=== PATIENT | male | born 1995 | race Caucasian/White ===

== ENCOUNTER 2025-01-02 15:24 | Inpatient (IN) | payer OTHER, SELFPAY ==
[2025-01-01] VITALS (8 sets, daily range): BP systolic 103–130; BP diastolic 68–79; BMI 25.7; BMI 24.9
[2025-01-01 12:49] LABS: % Basophils 0.4 % (0-2); % Eosinophils 0.3 % (0-6); % Immature Granulocytes 0.1 % (0-0.5); % Lymphocytes 21.7 % (20.5-51.1); % Monocytes 8.8 % (1.7-9.3); % Neutrophils 68.7 % (42.2-75.2); Absolute Lymphocytes 1.6 10^3/uL (1.2-3.4); Absolute Monocytes 0.7 10^3/uL (0.1-0.6); Absolute Neutrophils 5.2 10^3/uL (1.4-6.5); Hemoglobin 16.1 g/dL (13.0-18.0); Mean Corp Hgb Conc. 35.8 g/dL (33.0-37.0); Mean Corpuscular Hgb 31.1 pg (27.0-31.0); Mean Corpuscular Volume 86.9 fL (80.0-94.0); Mean Platelet Volume 10.6 fL (7.4-10.4); Nucleated Red Blood Cells % 0 % (-); Platelet Count 244 10^3/uL (130-400); Red Blood Cell Count 5.18 10^6/uL (4.70-6.10); Red Cell Dist. Width 12.2 % (11.5-14.5); White Blood Cell Count 7.5 10^3/uL (4.8-10.8)
[2025-01-01 13:15] LABS: ALT (SGPT) 36 U/L (0-50); AST (SGOT) 33 U/L (17-59); Albumin 4.9 g/dl (3.5-5.0); Alkaline Phosphatase 54 U/L (38-126); Blood Urea Nitrogen 13 mg/dl (9-20); Calcium 9.7 mg/dl (8.4-10.2); Carbon Dioxide 24 mmol/L (22-30); Chloride 108 mmol/L (98-107); Estimated Creatinine Clearance > 125 ml/min; Glucose 94 mg/dl (70-99); Potassium 4.3 mmol/L (3.5-5.1); Sodium 142 mmol/L (135-145); Total Bilirubin 1.3 mg/dl (0.2-1.3); Total Protein 7.9 g/dl (6.3-8.2); eGFR > 60.00
--- NOTE | 2025-01-01 13:34 | ED.GENMED ---
History of Present Illness
General
Chief Complaint: Dizziness
Time Seen by Provider: 01/01/25 11:22
History of Present Illness
History of Present Illness:
29-year-old male presents to the emergency department for evaluation of periods of confusion, difficulty with word finding, intermittent headaches, and blurry vision for the past 9 days. He was seen 1 week ago at [facility] and had
unremarkable lab workup, negative CT scan of the head, and negative tickborne illness panel. He has continued to have symptoms since that time. Having difficulty working secondary to severe symptoms. Denies any vertiginous symptoms. He was given
meclizine however this did not provide any benefit. Denies chest pain or dyspnea. He does note having a URI about 1 week prior to symptoms started but took antibiotics for this and felt better
Review of Systems
Review of Systems
Allergies reviewed?: Yes
All Other Systems: ROS reviewed and negative except as documented in HPI and ROS
Phy Exam
Physical Exam
Physical Exam:
GEN: Well appearing, NAD, WDWN
HEENT: Oral mucosa moist, no scleral icterus, no nasal congestion
Cardiac: Regular rate and rhythm, no murmurs
Lung: No respiratory distress, no tachypnea
MSK: No gross deformity or injuries
Skin: Good color, no pallor or jaundice, no rashes
Neuro: AO x3; CN II-XII grossly intact. BUE strength 5/5 in all felder, sensation intact and symmetric. BLE strength 5/5 in all felder, sensation intact and symmetric
Psych: Calm, cooperative
Course
Orders/Labs/Results
Orders:
Orders
01/01/25 12:13
Electrocardiogram (*1) Urgent
Reason for Study: Vertigo / Dizzy
EKG- Treatment ONCE
01/01/25 12:38
Complete Blood Count/With Diff Urgent
Comprehensive Metabolic Panel Urgent
TSH Reflex To Free T4 Urgent
01/01/25 15:58
MR Brain W/o & With Contrast Routine
Comment:
Reason For Exam: subtle right sided weakness/numbness
Recent pill cam endoscopy?: No
Abnormal Lab Results
01/01/25
12:38
MCH 31.1 H pg
(27.0-31.0)
MPV 10.6 H fL
(7.4-10.4)
Absolute Monos (auto) 0.7 H 10^3/uL
(0.1-0.6)
Chloride 108 H mmol/L
(98-107)
01/01/25 12:38
01/01/25 12:38
Vital Signs
Initial and Last Documented VS:
Initial Vital Signs
Temp Pulse Resp BP Pulse Ox
97.9 F 87 16 130/79 99
01/01/25 10:21 01/01/25 10:21 01/01/25 10:21 01/01/25 10:21 01/01/25 10:21
Last Documented Vital Signs
Temp Pulse Resp BP Pulse Ox
97.9 F 79 27 104/79 100
01/01/25 10:21 01/01/25 16:17 01/01/25 16:17 01/01/25 16:17 01/01/25 16:20
MDM/Problems Addressed
MDM/Problems Addressed:
Neurology was consulted to see the patient, on their evaluation they are concern for subtle weakness and vibratory sensation loss as well as a subtle right facial droop, although the constellation of symptoms is quite vague and broad neurology
recommends admission for MRI to evaluate for occult brain mass, demyelinating syndrome.
*Critical Care Note
Total Time (30-74mins, 75-104mins- exclusive of procedures): Not Applicable
ED Attending Note
-
Portions of this chart may have been created with voice recognition software.� Occasional wrong word or��sound alike� substitutions may have occurred due to the inherent limitations of voice recognition software.
Discharge Plan
Departure
Patient Disposition: Admit
Date of Disposition: 01/01/25
Time of Disposition: 16:24
Admit to: Med/Surg
Presentation/result/management discussed w/ accepting MD/DO: Hospitalist
Discharge Problem:
Dizziness
Prescriptions:
No Action
No Current Medications
0
Referrals:
NONE,* [Family Provider, Internal Medicine]
Interventions
Interventions:
*Risk Screen - Suicide Last Done: 01/01/25 10:21
*General Assessment Last Done: 01/01/25 10:21
*Neglect/Abuse Screening Last Done: 01/01/25 11:21
*ED- Fall Risk Assessment Last Done: 01/01/25 11:21
*ED COVID-19 Vaccine History Last Done: 01/01/25 11:21
ED- Neurological Assessment Last Done: 01/01/25 11:36
ED- Cardiac Assessment Last Done: 01/01/25 11:25
ED Swallowing Screen Last Done: 01/01/25 12:42
Discharge Date and Time
Print Language: VINCENTIAN
[2025-01-01 13:35] LABS: TSH Reflex To Free T4 1.19 uIU/ml (0.47-4.68)
--- NOTE | 2025-01-01 17:00 | HPS.HSE ---
Addendum entered and electronically signed by OLAYINKA Centeno 01/01/25 19:05:
Addendum:
Patient portal showed negative Lyme from [facility]
Original Note:
Family Physician
-
Family Physician: * NONE
Chief Complaint
-
dizziness
History of Present Illness
Patient is a 29 year-old male with no significant past medical history who presented to [facility] ED for evaluation of dizziness, periods of confusion, difficulty word finding intermittent, headaches and blurry vision for past 9 days. Patient reports
being seen at [facility] and had unremarkable workup, negative CT, and negatvie tick borne illness panel. Patient reports symptoms have been intermittent ever since. he believes symptoms are better in the morning and get worse as day goes
on. Patient denies any numbness, tingling, chest pain, palpitations or infectious symtpoms.
Medical History
Past Medical History
Past Medical History: Reports None
Past Surgical History: Reports None
Social History
Tobacco: Vaping (utilizes vape and pouches for nicotine )
Alcohol: Occasional
Drug: Marijuana (occasional marijuana use )
Personal:
Living: With Family
Employment: Employed
Family History
Family History: Other (Maternal grandfather: pituitary tumor; Father: CAD )
Allergies / Home Medications
Allergies reflects when Allergies were last updated in [facility].
Home Medications with original date entered in [facility]
Allergy/Medication List:
Allergies
Allergy/AdvReac Type Severity Reaction Status Date / Time
cephalexin (From Keflex) Allergy Unknown Verified 01/01/25 10:21
Cephalosporins Allergy Unknown Verified 01/01/25 10:21
clarithromycin (From Biaxin) Allergy Unknown Verified 01/01/25 10:21
Penicillins Allergy Unknown Verified 01/01/25 10:21
Home Medications
No Meds [No Current Medications] 01/01/25
Review of Systems
-
History Source: Patient
Constitutional: Reports No Symptoms
EENT: Reports No Symptoms
Respiratory: Reports No Symptoms
Cardiac: Reports No Symptoms
Abdomen/GI: Reports No Symptoms
: Reports No Symptoms
Musculoskeletal: Reports No Symptoms
Skin: Reports No Symptoms
Neurological: Reports Dizzy, Headache and Other (blurry vision, headaches)
Endocrine: Reports No Symptoms
Hematologic/Lymphatic: Reports No Symptoms
Psych: Reports No Symptoms
Physical Exam
Vital Signs
Vital Signs
Temp Pulse Resp BP Pulse Ox
97.9 F 79 27 104/79 100
01/01/25 10:21 01/01/25 16:17 01/01/25 16:17 01/01/25 16:17 01/01/25 16:20
Physical Exam
General: Well Developed, Well Nourished, No Apparent Distress, Comfortable and Conversant
HEENT: NormoCephalic, Moist mucous membranes, Atraumatic, Nose Appears Normal and Ears Appear Normal
Respiratory: Clear and Non Labored Respirations
Cardiac: S1/S2 and Regular Rhythm
Breast: Deferred by me
GI: Soft, Non Tender, Non Distended and Normal Bowel Sounds; No Organomegaly
Rectal: Deferred by Provider
Genito-urinary: Deferred by me
Musculoskeletal: No Clubbing, No Cyanosis and No Edema
Skin: Warm, Rash and IV/Catheter Site
Neuro: Awake, Alert, AO x 3, No Motor Deficits, Nonfocal/grossly intact, Cranial Nerves Intact (II - XII) and No Sensory Deficits; No Slurred Speech, Facial Droop or Tremors
Psych: Calm and Intact Judgment/Insight
Laboratory Results
-
01/01/25 12:38
01/01/25 12:38
Laboratory Results
Total Bilirubin 1.3 mg/dl (0.2-1.3) 01/01/25 12:38
AST 33 U/L (17-59) 01/01/25 12:38
ALT 36 U/L (0-50) 01/01/25 12:38
Alkaline Phosphatase 54 U/L (38-126) 01/01/25 12:38
Data Reviewed
-
MRI: Report Reviewed by me (brain: Negative MR evaluation of the brain.)
Medical Tests (Nuc Med, Echo, EKG etc): Report Reviewed by me (EKG: NORMAL SINUS RHYTHM WITH SINUS ARRHYTHMIA NONSPECIFIC ST ABNORMALITY)
Lab Data: Labs Reviewed by me
Impression/Plan
-
IMPRESSION/PLAN:
#neurological symptoms with confusion, brain fog, dizziness
EKG: NORMAL SINUS RHYTHM WITH SINUS ARRHYTHMIA
NONSPECIFIC ST ABNORMALITY
Brain MRI: Negative MR evaluation of the brain
- Admit to med/surg for observation
- Consult Neurology
- EEG
- LP
Code status: full code
DVT prophylaxis: Lovenox sq
--- NOTE | 2025-01-01 18:36 | W.PN.UPDATE ---
Update Note
Progress Note Update
Patient was independently examined and I agree with H&P written on the same day. In addition: 29yo M with various neurological complains as confusion, difficulty finding words, intermittent blurry vision with eye pressure tarted on and
recent workup in [facility], which reportedly was negative.
-Neuro consult, ESR, CRP, EEG, LP
We have spent at least 76min admitting the patient
--- NOTE | 2025-01-01 18:38 | CON.NEURO ---
Addendum entered and electronically signed by Eyad Lynch MD 01/01/25 19:16:
we also discussed option of discharge home, watching progression; either it gets better, gets worse and reveals what it is; or stays the same in whch case it typically responds to migraine meds, antidepressants or antiseizure drugs;
as he is acutely unable to work, he would like further workup
Original Note:
Neuro Assessment/Plan
Assessment
29 year old healthy man with nonspecific symptoms, severe enough that it is impairing his ability to work. exam with subtle right sided weakness/numbness;
Emergent brain MRI w/o and w/ contrast I reviewed imaging, normal
if his right sided deficits on exam are indeed related to the presenting symptoms, next steps in workup would be EEG and LP looking for autoimmune/infectious etiology
and additional medical workup
Later I performed SPG block bilaterally - afterwards patient report headache relief and his right sided weakness on exam was resolved but the other symptoms brain fog, dizziness persists
Plan
EEG, LP for viral/autoimmune
Consultation
Order
Date of Consultation: 01/01/25
Requesting Provider: Mau Nettles
Reason for Consult: dizziness
Subjective/Objective
Subjective Data
Date of Service: January 01, 2025
From ED notes:
29-year-old male presents to the emergency department for evaluation of periods of confusion, difficulty with word finding, intermittent headaches, and blurry vision for the past 9 days. He was seen 1 week ago at [facility] and had
unremarkable lab workup, negative CT scan of the head, and negative tickborne illness panel. He has continued to have symptoms since that time. Having difficulty working secondary to severe symptoms. Denies any vertiginous symptoms. He was given
meclizine however this did not provide any benefit. Denies chest pain or dyspnea. He does note having a URI about 1 week prior to symptoms started but took antibiotics for this and felt better
right handed.
complaining of lightheadedness, mild headache forehead/right eye, mild blurry vision, confusion, word finding difficulties, brain fog, dyspnea on exertion. symptoms seem to worsen throughout the day, and relatively constant since beginning ~10 days
ago
denies vertigo, vision loss, double vision, facial droop, involuntary movements, seizures, hallucinations, delusions, weakness/numbness
Objective Data
Vital Signs
Temp Pulse Resp BP Pulse Ox
36.6 C 81 11 104/79 100
01/01/25 10:21 01/01/25 17:00 01/01/25 17:00 01/01/25 16:17 01/01/25 16:20
Lab Results
01/01/25 12:38
01/01/25 12:38
Sodium 142 mmol/L (135-145) 01/01/25 12:38
Potassium 4.3 mmol/L (3.5-5.1) 01/01/25 12:38
BUN 13 mg/dl (9-20) 01/01/25 12:38
Glucose 94 mg/dl (70-99) 01/01/25 12:38
Calcium 9.7 mg/dl (8.4-10.2) 01/01/25 12:38
Patient Allergies
cephalexin (From Keflex) Allergy (Verified 01/01/25 10:21)
Unknown
Cephalosporins Allergy (Verified 01/01/25 10:21)
Unknown
clarithromycin (From Biaxin) Allergy (Verified 01/01/25 10:21)
Unknown
Penicillins Allergy (Verified 01/01/25 10:21)
Unknown
Physical Exam
-
AAOx3, speech clear, language intact
VFF, EOMI, face symmetric
trace right sided weakness, right pronator drift
trace right sided vibratory loss
pinprick intact
DTR normal/symmetric
Medications
-
Home Medications
�Medication �Instructions �Recorded
No Meds [No Current Medications] 01/01/25
[2025-01-01] MEDS: TYLENOL 650 MG PO (20:53)
[2025-01-01 23:31] LABS: C-Reactive Protein < 5.00 mg/L (0.0-10.00)
[2025-01-01 23:55] LABS: Amphetamines Negative (Negative); Barbiturates Negative (Negative); Benzodiazepines Negative (Negative); Buprenorphine Negative (Negative); Cocaine Negative (Negative); Marijuana Negative (Negative); Methadone Negative (Negative); Methamphetamines Negative (Negative); Opiates Negative (Negative); Phencyclidine Negative (Negative); Tricyclic Antidepressants Negative (Negative)
--- NOTE | 2025-01-02 07:13 | W.PN.HOSP.TC ---
Today's Communication/Plan
-
Discharge today after CT Imaging completed and CT report is in
Assessment / Plan
Assessment / Plan
Physical Exam
General: Well Developed, Well Nourished, No Apparent Distress, Comfortable and Conversant
HEENT: Normocephalic, Moist mucous membranes
Respiratory: Clear to Auscultation Bilaterally
Cardiac: S1/S2 and Regular Rhythm
GI: Soft, Non Tender, Non Distended and Normal Bowel Sounds
Musculoskeletal: No Cyanosis and No Edema
Skin: Warm. Dry.
Neuro: Awake, Alert, AO x 3, No Motor Deficits, Nonfocal/grossly intact, Cranial Nerves Intact (II - XII) and No Sensory Deficits
Psych: Calm and Intact Judgment/Insight
Assessment/Plan
29 year-old male with no significant past medical history who presented to [facility] ED for evaluation of dizziness, periods of confusion, difficulty word finding intermittent, headaches and blurry vision for past 9 days. Patient reports being seen at
[facility] and had unremarkable workup, negative CT, and negatvie tick borne illness panel. Patient reports symptoms have been intermittent ever since. he believes symptoms are better in the morning and get worse as day goes on. Patient
denies any numbness, tingling, chest pain, palpitations or infectious symtpoms.
Patient portal showed negative Lyme from [facility]
29yo M with various neurological complains as confusion, difficulty finding words, intermittent blurry vision with eye pressure tarted on and recent workup in [facility], which reportedly was negative.
#Neurological symptoms with confusion, brain fog, dizziness
#Migraine
- After neurology performed on 01/01/25 sphenopalatine ganglion block his headache resolved, and his right sided weakness on exam was resolved but the other symptoms brain fog, dizziness persisted
- Brain MRI: Negative MR evaluation of the brain
- Consult Neurology
- EEG unremarkable
- LP
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
- CT chest/abd/pel cancer screen to be done today
- Follow-up outpatient pending oligoclonal band, MBC, ADDISON, viral PCR, acid fast, paraneoplastic ab
- Might need IVIG outpatient
- Outpatient Cymbalta 20 mg daily
- Follow-up with neurology office, Zully Emery, in 2 weeks
Code status: full code
DVT prophylaxis: Lovenox sq
More than 30 minutes spent in discharge including
Final examination of the patient
Summarizing hospital stay
Instructions for continuing care to all relevant caregivers
Preparation of discharge records, prescriptions, and referral forms
Total time spent (in minutes): 43
Anticipated Discharge: Today
Subjective/Interval History
-
Date of Service: January 02, 2025
Patient was seen and examined. He reported that his brain fog and lightheadedness remain.
Objective Data
-
Labs:
Laboratory Results
01/02/25
07:03
WBC Pending
Hgb Pending
Hct Pending
Plt Count Pending
Sodium Pending
Potassium Pending
Chloride Pending
Carbon Dioxide Pending
BUN Pending
Creatinine Pending
Glucose Pending
Calcium Pending
Vital Signs:
Vital Signs
Temp Pulse Resp BP Pulse Ox
98.0 F 67 11 120/79 98
01/01/25 23:46 01/01/25 23:46 01/01/25 17:00 01/01/25 23:46 01/01/25 23:46
[2025-01-02 07:30] VITALS: BP 125/64
[2025-01-02 07:47] LABS: Hematocrit 47.9 % (39.0-52.0); Hemoglobin 16.6 g/dL (13.0-18.0); Mean Corp Hgb Conc. 34.7 g/dL (33.0-37.0); Mean Corpuscular Hgb 30.7 pg (27.0-31.0); Mean Corpuscular Volume 88.5 fL (80.0-94.0); Mean Platelet Volume 10.6 fL (7.4-10.4); Platelet Count 246 10^3/uL (130-400); Red Blood Cell Count 5.41 10^6/uL (4.70-6.10); Red Cell Dist. Width 12.4 % (11.5-14.5); White Blood Cell Count 7.6 10^3/uL (4.8-10.8)
[2025-01-02 08:09] LABS: INR 1.02; PT 13.9 Sec (11.4-14.6)
[2025-01-02 08:19] LABS: Erythrocyte Sed Rate 5 mm/hour (0-20)
[2025-01-02 08:41] LABS: Blood Urea Nitrogen 12 mg/dl (9-20); Calcium 9.6 mg/dl (8.4-10.2); Carbon Dioxide 27 mmol/L (22-30); Chloride 106 mmol/L (98-107); Estimated Creatinine Clearance 124 ml/min; Glucose 93 mg/dl (70-99); Potassium 4.5 mmol/L (3.5-5.1); Sodium 141 mmol/L (135-145); eGFR > 60.00
[2025-01-02 10:30] VITALS: BP 108/78; BP_SYST 73
[2025-01-02 11:44] VITALS: BP 112/77
[2025-01-02 12:22] VITALS: BP 129/77
[2025-01-02 12:54] LABS: Spinal Fluid Glucose 55 mg/dl (40-70); Spinal Fluid Protein 77 mg/dl (12-60)
--- NOTE | 2025-01-02 13:06 | CM ---
Initial assessment completed with mother and jake. Patient off unit. Patient lives with his jake and 4 y/o son in a 1 story home plus basement with 2 steps to enter. 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 No DME. No in-home services. No
service and no HC-POA. Family is support system. No PCP. Pharmacy is [facility] in [facility]. Discharge POC: Anticipate home with no needs.
[2025-01-02 13:09] LABS: CSF Clarity Clear; CSF Color Colorless; CSF Tube # 4; Red Cell Count/CSF 4 mm^3; White Cell Count/CSF 1 mm^3 (0-5)
[2025-01-02 13:29] VITALS: BP 115/67
--- NOTE | 2025-01-02 14:03 | W.PN.UPDATE ---
Update Note
Progress Note Update
procedure note
performed yesterday 01/01/25
59816.50 sphenopalatine ganglion block
dx G43.111 intractable migraine without aura
patient placed supine, using 3 cc syringe 20g x 1.25 inch plastic iv catheter, 1 cc bupivacaine 0.5% sprayed each nostril
~1 minute after the procedure patient report headache resolved, on exam focal deficits resolved. lightheadedness and brain fog persisted
--- NOTE | 2025-01-02 14:54 | W.PN.NEURO.1 ---
Today's Communication / Plan
-
MRI brain w/o and w/ contrast neg
EEG normal
CSF protein 77, glc 55, WBC 1, RBC 4
pending oligoclonal band, MBC, ADDISON, viral PCR, acid fast, paraneoplastic ab
with CSF protein 77 albuminocytologic dissociation, strengthens my suspicions for this being the beginnings of autoimmune encephalitis
CT chest/abd/pel cancer screen
discussed that based on tests/symptoms progression he may need IVIG
for his migrainous symptoms, anxiety, rx Cymbalta 20/day
have asked our office to follow up with him in 2 weeks with [employer]
Neuro Assessment/Plan
Assessment
29 year old healthy man with nonspecific symptoms, severe enough that it is impairing his ability to work. exam with subtle right sided weakness/numbness;
Emergent brain MRI w/o and w/ contrast I reviewed imaging, normal
if his right sided deficits on exam are indeed related to the presenting symptoms, next steps in workup would be EEG and LP looking for autoimmune/infectious etiology
and additional medical workup
Later I performed SPG block bilaterally - afterwards patient report headache relief and his right sided weakness on exam was resolved but the other symptoms brain fog, dizziness persists
Plan
EEG, LP for viral/autoimmune
Subjective/Objective
Subjective Data
Date of Service: January 02, 2025
got LP, getting EEG now. laying in bed very anxious (baseline anxiety)
headache and right sided deficits resolved
lightheadedness persists. brain fog he's not sure until he gets home
Objective Data
Vital Signs
Temp Pulse Resp BP Pulse Ox
36.7 C 80 16 115/67 99
01/02/25 12:22 01/02/25 13:29 01/02/25 13:29 01/02/25 13:29 01/02/25 13:29
Lab Results
01/02/25 07:03
01/02/25 07:03
PT 13.9 Sec (11.4-14.6) 01/02/25 07:44
INR 1.02 01/02/25 07:44
Sodium 141 mmol/L (135-145) 01/02/25 07:03
Potassium 4.5 mmol/L (3.5-5.1) 01/02/25 07:03
BUN 12 mg/dl (9-20) 01/02/25 07:03
Glucose 93 mg/dl (70-99) 01/02/25 07:03
Calcium 9.6 mg/dl (8.4-10.2) 01/02/25 07:03
Ur Buprenorphine Negative (Negative) 01/01/25 23:14
Patient Allergies
cephalexin (From Keflex) Allergy (Verified 01/01/25 10:21)
Unknown
Cephalosporins Allergy (Verified 01/01/25 10:21)
Unknown
clarithromycin (From Biaxin) Allergy (Verified 01/01/25 10:21)
Unknown
Penicillins Allergy (Verified 01/01/25 10:21)
Unknown
--- NOTE | 2025-01-02 15:03 | CM ---
Per Therapy: Patient will need air mattress when at SNF.
--- NOTE | 2025-01-02 15:08 | EEG.RPT ---
Electroencephalogram Report
Recording
Date of EE01/02/25
Length of EEG recordin mins
Done with Video Recording: Yes
Patient Status: Inpatient
Recording Conditions: Awake and Drowsy
Hyperventilation Performed: No
Photic Stimulation Performed: Yes
Report
Clinical Background:�29 year old man suspecting encephalitis
Introduction: A routine bedside EEG was done using [employer] 10-20 electrode placement protocol.
Background: In the most alert state, the PDR is 9-10 Hz in frequency with normal amplitude. There is spontaneous variability and reactivity.�
Sleep: No sleep is seen.�
Focal/epileptiform: There were no focal or epileptiform discharges. No clinical or electrographic seizures occurred during this recording.
Photic stimulation: resulted in normal driving response. There was no photo myogenic or photoparoxysmal response.�
Impression: Normal EEG
[2025-01-02] MEDS: OMNIPAQUE 50 ML PO (15:37)
[2025-01-02] MEDS: CYMBALTA DELAYED RELEASE 20 MG PO (15:37)
[2025-01-02] MEDS: LOVENOX 40 MG SC (20:22)
[2025-01-02] MEDS: TYLENOL 650 MG PO (21:38)
[2025-01-02 23:23] VITALS: BP 112/79
[2025-01-03 07:42] VITALS: BP 123/61
[2025-01-03] MEDS: CYMBALTA DELAYED RELEASE 20 MG PO (08:18)
[2025-01-03 09:19] LABS: % Basophils 0.3 % (0-2); % Eosinophils 0.6 % (0-6); % Immature Granulocytes 0.3 % (0-0.5); % Lymphocytes 21.6 % (20.5-51.1); % Monocytes 9.2 % (1.7-9.3); Absolute Lymphocytes 1.5 10^3/uL (1.2-3.4); Absolute Monocytes 0.6 10^3/uL (0.1-0.6); Absolute Neutrophils 4.7 10^3/uL (1.4-6.5); Hematocrit 47.6 % (39.0-52.0); Hemoglobin 16.6 g/dL (13.0-18.0); Mean Corp Hgb Conc. 34.9 g/dL (33.0-37.0); Mean Corpuscular Hgb 30.4 pg (27.0-31.0); Mean Corpuscular Volume 87.2 fL (80.0-94.0); Mean Platelet Volume 10.5 fL (7.4-10.4); Nucleated Red Blood Cells % 0 % (-); Platelet Count 273 10^3/uL (130-400); Red Blood Cell Count 5.46 10^6/uL (4.70-6.10); Red Cell Dist. Width 12.3 % (11.5-14.5); White Blood Cell Count 6.9 10^3/uL (4.8-10.8)
[2025-01-03 10:16] LABS: ALT (SGPT) 31 U/L (0-50); AST (SGOT) 24 U/L (17-59); Albumin 4.7 g/dl (3.5-5.0); Alkaline Phosphatase 54 U/L (38-126); Blood Urea Nitrogen 12 mg/dl (9-20); Calcium 9.9 mg/dl (8.4-10.2); Carbon Dioxide 29 mmol/L (22-30); Chloride 105 mmol/L (98-107); Estimated Creatinine Clearance > 125 ml/min; Glucose 94 mg/dl (70-99); Lipase 94 U/L (23-300); Magnesium 2.1 mg/dl (1.6-2.3); Potassium 4.8 mmol/L (3.5-5.1); Sodium 142 mmol/L (135-145); Total Bilirubin 0.9 mg/dl (0.2-1.3); Total Protein 7.8 g/dl (6.3-8.2); eGFR > 60.00
--- NOTE | 2025-01-03 11:47 | CM ---
Reviewed the chart notes. Patient ambulating in room ad markus. CM continues to be available to patient/family and is monitoring medical plan for needs at discharge.
Plan: Discharge to home when medically stable. No needs anticipated.
--- NOTE | 2025-01-03 13:27 | W.PN.HOSP.TC ---
Today's Communication/Plan
-
Discharge today
Assessment / Plan
Assessment / Plan
Physical Exam
General: Well Developed, Well Nourished, No Apparent Distress, Comfortable and Conversant
HEENT: Normocephalic, Moist mucous membranes
Respiratory: Clear to Auscultation Bilaterally
Cardiac: S1/S2 and Regular Rhythm
GI: Soft, Non Tender, Non Distended and Normal Bowel Sounds
Musculoskeletal: No Cyanosis and No Edema
Skin: Warm. Dry.
Neuro: Awake, Alert, AO x 3, No Motor Deficits, Nonfocal/grossly intact, Cranial Nerves Intact (II - XII) and No Sensory Deficits
Psych: Calm and Intact Judgment/Insight
Assessment/Plan
29 year-old male with no significant past medical history who presented to [facility] ED for evaluation of dizziness, periods of confusion, difficulty word finding intermittent, headaches and blurry vision for past 9 days. Patient reports being seen at
[facility] and had unremarkable workup, negative CT, and negatvie tick borne illness panel. Patient reports symptoms have been intermittent ever since. he believes symptoms are better in the morning and get worse as day goes on. Patient
denies any numbness, tingling, chest pain, palpitations or infectious symtpoms.
Patient portal showed negative Lyme from [facility]
29yo M with various neurological complains as confusion, difficulty finding words, intermittent blurry vision with eye pressure tarted on and recent workup in [facility], which reportedly was negative.
#Neurological symptoms with confusion, brain fog, dizziness
#Migraine
- After neurology performed on 01/01/25 sphenopalatine ganglion block his headache resolved, and his right sided weakness on exam was resolved but the other symptoms brain fog, dizziness persisted
- Brain MRI: Negative MR evaluation of the brain
- Consult Neurology
- EEG unremarkable
- LP
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
- CT chest/abd/pel cancer screen completed and unremarkable
- Follow-up outpatient pending oligoclonal band, MBC, ADDISON, viral PCR, acid fast, paraneoplastic ab
- Might need IVIG outpatient
- Outpatient Cymbalta 20 mg daily
- Follow-up with neurology office, Zully Emery in 2 weeks
Code status: full code
DVT prophylaxis: Lovenox sq
More than 30 minutes spent in discharge including
Final examination of the patient
Summarizing hospital stay
Instructions for continuing care to all relevant caregivers
Preparation of discharge records, prescriptions, and referral forms
Total time spent (in minutes): 39
Anticipated Discharge: Today
Subjective/Interval History
-
Date of Service: January 03, 2025
Patient was seen and examined. He had some nausea/vomiting this morning but denied chest pain, SOB, abdominal pain, constipation or significant diarrhea; he stated he gets nausea/vomiting sometimes at home for no clear reason. He stated that he is
not concerned about these symptoms and would like to go home today.
Objective Data
-
Labs:
Laboratory Results
01/03/25
08:56
WBC 6.9
Hgb 16.6
Hct 47.6
Plt Count 273
Sodium 142
Potassium 4.8
Chloride 105
Carbon Dioxide 29
BUN 12
Creatinine 0.9
Glucose 94
Calcium 9.9
Total Bilirubin 0.9
AST 24
ALT 31
Alkaline Phosphatase 54
Vital Signs:
Vital Signs
Temp Pulse Resp BP Pulse Ox
97.9 F 74 16 123/61 98
01/03/25 07:42 01/03/25 07:42 01/03/25 07:42 01/03/25 07:42 01/03/25 07:42
--- NOTE | 2025-01-03 14:37 | W.DCSUMMARY ---
Discharge Summary
Discharge Data
Date of Admission: 01/01/25
Date of Discharge: 01/03/25
Total time spent discharging patient (in min): 39
-
Pending Results: Yes
Additional Pending Results:
Special Cerebrospinal Fluids and Immunology studies. Microbiology results.
Hospital Course
29 year-old male with no significant past medical history who presented to [facility] ED for evaluation of dizziness, periods of confusion, difficulty word finding intermittent, headaches and blurry vision for 9 days prior to presentation. Patient reports
being seen at [facility] and had unremarkable workup, negative CT imaging, and negative tick borne illness panel (patient's patient portal showed negative Lyme from [facility]). Patient reported symptoms have been intermittent ever
since. Neurology was consulted and lumbar puncture was ordered. Neurology performed SPG block bilaterally - afterwards patient reported relief of headache, and his right sided weakness on exam was resolved but the other symptoms including brain fog
and dizziness persisted. CSF protein 77, glc 55, WBC 1, RBC 4; albuminocytologic dissociation, strengthened the suspicion for this being the beginnings of autoimmune encephalitis. Neurology discussed with the patient that based on tests/symptoms
progression he may need IVIG. CT chest/abd/pel cancer screen was done given suspected encephalitis and was unremarkable. For patient's migrainous symptoms, and anxiety, patient was prescribed Cymbalta 20 mg per day, patient was also asked to
follow-up in neurology office in 2 weeks with nurse practitioner.
Discharge Plan
-
Patient Disposition: Home (Routine Discharge)
Discharge Diagnosis/Procedures: Migrainous Symptoms
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
CT Chest/abdomen/pelvis with intravenous Contrast (as per radiologist's report):
'FINDINGS:
CHEST: The trachea and central airways are patent. The thyroid gland is homogeneous. There is no focal parenchymal mass, consolidation, pneumothorax, pleural effusion or pericardial effusion. There is no significant hilar, mediastinal or axillary
lymphadenopathy. There is no focal suspicious osseous lesion.
ABDOMEN: There is no focal intrinsic abnormality of the liver, spleen, pancreas, adrenal glands or kidneys. The gallbladder is somewhat contracted, limited. There are no findings to suggest biliary tract dilatation. There is no intestinal
obstruction or free air, limited evaluation of the distal large bowel due to lack of oral contrast opacification. There is no retroperitoneal lymphadenopathy. There is suspected tiny fat only containing umbilical hernia. There is no focal suspicious
osseous lesion.
PELVIS: The urinary bladder is virtually completely empty and unopacified, cannot be evaluated. There is no true pelvis free fluid0 or significant lymphadenopathy. There are a few bilateral subcentimeter inguinal lymph nodes. There is no focal
suspicious osseous lesion.
IMPRESSION:
No suspicious mass or lymphadenopathy throughout the chest, abdomen and pelvis with evaluation of the distal large bowel limited without oral contrast and with virtually completely empty/unopacified urinary bladder unable to be evaluated.
Somewhat contracted gallbladder.'
MRI Brain (as per radiologist's report)
'FINDINGS: MRI of the brain is performed on 3 Opal field strength machine, images obtained prior to and following intravenous administration of gadolinium-based contrast agent.
There is no evidence of intracranial mass lesion or mass effect with no midline shift.
No focal area of abnormal restricted diffusion is identified with no evidence of a focal area of infarction.
There is no evidence for intracranial hemorrhage. On T2 gradient echo sequence, there is no evidence for old microhemorrhage or vascular malformation.
The ventricles and subarachnoid cisterns appear within normal limits.
Gonzales and white matter differentiation appears normal.
The craniocervical junction appears normal with no evidence for Chiari malformation.
No abnormality of the pituitary gland. The infundibulum is midline.
The enhancement pattern of the brain appears within normal limits. The dural venous sinuses appear patent.
Mild patchy mucosal thickening of the ethmoid sinuses. Minimal peripheral mucosal thickening of the right maxillary sinus. The rest of the visualized paranasal sinuses appear clear.
The mastoid air cells appear clear.
IMPRESSION: Negative MR evaluation of the brain.'
Condition: Good
Diet: As tolerated
Activity: As tolerated
Referrals:
Zully Emery CRNP [Specified Professional Personl, Neurology] - in one to two weeks
Referral Note: Hospital Follow-Up
NONE,* [Family Provider, Internal Medicine]
Additional Discharge Medication Instructions: Duloxetine is a new medication.
Prescriptions:
New
duloxetine 20 mg Capsule,Delayed Release(Dr/Ec)
20 mg PO DAILY Qty: 30 0RF
Rx Instructions:
First Dose on 01/04/25
Discharge Orders:
Discharge Patient (As Directed); Ordered 01/03/25
Ordered By: Umesh Raza
Discharge Date and Time
Discharge Date/Time: 01/03/25 14:59
Print Language: WALLISIAN
[2025-01-04 13:56] LABS: Angiotensin-1- Converting, CSF 2.3 U/L (0.0-2.5)
[2025-01-04 21:52] LABS: Myelin Basic Protein, CSF 2.02 ng/mL (0.00-5.50)
[2025-01-04 22:13] LABS: Albumin Index 8.8 ratio (0.0-9.0); Albumin, CSF 37 mg/dL (0-35); Albumin, Serum 4221 mg/dL (3500-5200); CSF IgG/Albumin Ratio 0.15 ratio (0.09-0.25); CSF Oligoclonal Bands Negative (Negative); CSF Oligoclonal Bands Number 0 Bands (0-1); IgG 1083 mg/dL (768-1632); IgG, CSF 5.6 mg/dL (0.0-6.0)
[2025-01-05 00:14] LABS: Paraneoplastic Ab IgG, CSF None Detected (None Detected)
== END 2025-01-03 14:59 | disposition home or self-care (01) | DRG 99 ==
LOC: 2 NORTH 15:24
PROVIDERS: Nurse Practitioner Family; Physician Assistant; Radiology Vascular & Interventional Radiology; ADMITTING PHYSICIAN Internal Medicine; ATTENDING PHYSICIAN Hospitalist; CONSULT PHYSICIAN Psychiatry & Neurology Clinical Neurophysiology; EMERGENCY PHYSICIAN Emergency Medicine
PROC: B01B1ZZ Fluoroscopy of Spinal Cord using Low Osmolar Contrast (ICD-10-PCS; 2025-01-02)
PROC: 009U3ZX Drainage of Spinal Canal, Percutaneous Approach, Diagnostic (ICD-10-PCS; 2025-01-02)
DX: G04.90 Encephalitis and encephalomyelitis, unspecified (principal); G43.019 Migraine without aura, intractable, without status migrainosus
CPT/HCPCS: 62328; 70553; 71260; 74177; 80048; 80053; 80306; 82040; 82042; 82164; 82784; 82945; 83690; 83735; 83873; 83916; 84157; 84443; 85025; 85027; 85610; 85652; 86140; 86255; 87070; 87116; 87483; 89051; 93005; 95816; 99285; A9575; Q9967